=== PATIENT | male | born 1960 | race Caucasian/White ===

== ENCOUNTER 2016-10-22 20:46 | Emergency (ER) | payer OTHER ==
[~2016-10-22] VITALS: Ht 177.8 cm; Wt 72.0 kg
[~2016-10-22 20:46] MED LIST: NAPR-260 PO; PANT40TA3 PO
[2016-10-22 20:56] VITALS: Ht 177.8 cm; Wt 72.0 kg
[2016-10-22] MEDS ORDERED: IBUP-1542 PO (21:10)
[2016-10-22] MEDS ORDERED: AZIT250T94 PO (21:10)
[2016-10-22] MEDS ORDERED: CETI10CA PO (21:10)
--- NOTE | 2016-10-22 21:20 | ERD ---
ER Documentation Chief Complaint Date/Time DATE: 10/22/16 TIME: 21:17 Chief Complaint right ear pain x 1 day HPI 55-year-old male presents here in emergency department for complaints of right ear pain and bloody discharge from the right ear started 2 hours prior to arrival, patient just arrived from an airplane ride, started to have the symptoms afterwards. Did not have any ear pain before that. Patient denies any trauma in the ear. Patient denies any fever or chills. Patient denies any other symptoms. ROS All systems reviewed and are negative except as per history of present illness. Medications Home Meds Active Scripts Cetirizine Hcl* (Zyrtec*) 10 Mg Capsule, 10 MG PO DAILY, #30 TAB.CHEW Prov:RINKU WADE [employer] 10/22/16 Ibuprofen* (Motrin*) 600 Mg Tab, 600 MG PO Q6H Y for PAIN AND OR ELEVATED TEMP, #30 TAB Prov:RINKU WADE NP 10/22/16 Azithromycin* (Zithromax*) 250 Mg Tablet, 250 MG PO .ZPACK DIRECTED, #6 TAB TAKE 500 MG (2 TABS) THE FIRST DAY THEN 250 MG (1 TAB) DAYS 2-5 Prov:RINKU WADE NP 10/22/16 Naproxen* (Naprosyn*) 500 Mg Tablet, 500 MG PO BID Y for PAIN AND/OR INFLAMMATION, #30 TAB Prov:EPHRAIM MORE DO 09/10/15 Reported Medications Pantoprazole* (Protonix*) 40 Mg Tablet.dr, 40 MG PO DAILY, TAB 09/10/15 Allergies Allergies: Coded Allergies: Penicillins (Verified Allergy, Unknown, 02/04/14) Uncoded Allergies: PENICILLIN (Allergy, Unknown, 02/04/14) PMhx/Soc History of Surgery: Yes ([facility]IP[facility] PROCEDURE 04/11) Anesthesia Reaction: No Hx Neurological Disorder: No Hx Respiratory Disorders: No Hx Cardiac Disorders: No Hx Psychiatric Problems: No Hx Miscellaneous Medical Probl: No Hx Alcohol Use: No Hx Substance Use: No Hx Tobacco Use: No Physical Exam Vitals Vital Signs Date Time Temp Pulse Resp B/P Pulse Ox O2 Delivery O2 Flow Rate FiO2 10/22/16 20:56 98.3 69 20 128/85 100 Physical Exam GENERAL: The patient is well developed and appropriate for usual state of health, in no apparent distress. HEENT: Atraumatic. Ears: Normal left tympanic membrane, no erythema or bulging. No ear canal swelling. No ear discharge. Right ear tympanic membrane noted to be perforated with bloody discharge. Nose: normal nasal turbinates, no erythema or swelling. Normal nasal discharge. Throat: oropharynx clear. No tonsillar swelling or tonsillar exudates. No lymphadenopathy. CHEST: Clear to auscultation bilaterally. There are no rales, wheezes or rhonchi. HEART: Regular rate and rhythm. No murmurs, clicks, rubs or gallops. No S3 or S4. ABDOMEN: Soft, nontender and nondistended. Good bowel sounds. No rebound or guarding. No gross peritonitis. No gross organomegaly or masses. No Ochoa sign or McBurney point tenderness. BACK: No midline or flank tenderness. EXTREMITIES: Equal pulses bilaterally. There is no peripheral clubbing, cyanosis or edema. No focal swelling or erythema. Full range of motion. Grossly neurovascularly intact. NEURO: Alert and oriented. Cranial nerves 2-12 intact. Motor strength in all 4 extremities with 5/5 strength. Sensation grossly intact. Normal speech and gait. SKIN: There is no apparent rash or petechia. The skin is warm and dry. HEMATOLOGIC AND LYMPHATIC: There is no evidence of excessive bruising or lymphedema. No gross cervical, axillary, or inguinal lymphadenopathy. Procedures/MDM Medical decision making: Patient symptoms is likely consistent with tympanic membrane perforation from ear barotrauma caused by plane ride. Patient was given azithromycin to prevent infection of affected area. No symptoms of otitis externa, no symptoms of mastoiditis, no symptoms of malignant otitis. Patient was given a prescription for azithromycin to prevent infection, ibuprofen and Zyrtec, is advised to follow with primary care doctor to 3 days for reevaluation of symptoms, possible see ENT specialist as necessary. Patient is advised to return to emergency department for worsening symptoms Departure Diagnosis: Primary Impression: Ear barotrauma Encounter type: initial encounter Qualified Code: T70.0XXA - Ear barotrauma , initial encounter Additional Impression: Tympanic membrane perforation Laterality: right Qualified Code: H72.91 - Tympanic membrane perforation, right Condition: Stable Patient Instructions: Ear Barotrauma RINKU WADE NP Oct 22, 2016 21:20
== END 2016-10-22 21:10 | disposition home or self-care (01) ==
LOC: E/R 20:46
DX: T70.0XXA Otitic barotrauma, initial encounter (principal); H72.91 Unspecified perforation of tympanic membrane, right ear
CPT/HCPCS: 99283